=== PATIENT | female | born 1980 | race Caucasian/White ===

== ENCOUNTER → 2020-03-10 15:56 | Outpatient (CLI) | payer OTHER, SELFPAY ==
--- NOTE | ~2020-03-10 | MM_ITS ---
EXAMINATION: MM scrn kobi implant BI w luis HISTORY: Screening mammogram TECHNIQUE: Craniocaudal and mediolateral oblique 3-D tomosynthesis images with implant displacement a nd synthetic 2-D images were generated. Craniocaudal and mediolateral oblique views of the breasts wi thout implant displacement were obtained using full field digital mammography. CAD analysis was submi tted and interpreted. COMPARISON: 05/30/2011 BREAST PARENCHYMAL COMPOSITION: The breasts are extremely dense, which lowers the sensitivity of mamm ography. FINDINGS: There are subpectoral silicone implants. There is no evidence of suspicious mass, calcifica tion, or architectural distortion to suggest malignancy in either breast. There has been no suspiciou s interval change. IMPRESSION: 1. No mammographic evidence of malignancy. 2. Recommend routine screening mammography in one year. BI-RADS Category 1: Negative Reviewed, dictated and finalized at location A.
== END ==
PROVIDERS: Visit Provider Nurse Practitioner Obstetrics & Gynecology
DX: Z12.31 Encounter for screening mammogram for malignant neoplasm of breast (principal)
CPT/HCPCS: 77063; 77067

== ENCOUNTER 2025-06-10 08:56 | Outpatient (CLI) | payer OTHER, SELFPAY ==
--- NOTE | ~2025-06-10 | MR_ITS ---
EXAMINATION: MR lumbar spine wo con DATE: 06/10/2025 09:22 INDICATION: Acute low back pain and neuropathy with bilateral lower limb pain TECHNIQUE: Magnetic resonance imaging (MRI) of the lumbar spine was performed without intravenous contrast. Sequences included sagittal T2-weighted FSE, sagittal T2-weighted FS FSE, sagittal T1-weighted FSE, and axial T2-weighted FSE. COMPARISON: None FINDINGS: 3 mm retrolisthesis L5 on S1. Alignment is otherwise normal. Vertebral body heights are normal. T1 hyperintense hemangiomas at T11 and L1. Marrow signal is otherwise normal.. Mild disc height loss at T12-L1 and L5-S1, the latter with annular fissure. The conus medullaris terminates at L2. There is normal signal in the caudal spinal cord. Paravertebral soft tissues are unremarkable. The following disc levels are specifically discussed: T12-L1: Disc is mildly bulging. 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 There is no neural foraminal stenosis. There is minimal central canal stenosis. L1-L2: Disc is mildly bulging. 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 There is no neural foraminal stenosis. There is mild central canal stenosis. L2-L3: Disc is bulging. 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 There is mild bilateral neural foraminal stenosis. There is mild central canal stenosis. L3-L4: Disc is bulging. There is mild bilateral facet joint osteoarthritis. There is mild bilateral neural foraminal stenosis. There is mild central canal stenosis. L4-L5: Disc is bulging. There is mild to moderate bilateral facet joint osteoarthritis. There is mild to moderate bilateral neural foraminal stenosis. There is mild central canal stenosis. L5-S1: Annular fissure and small central disc extrusion with disc material extending up to 3 mm caudal to the level of the superior endplate of S1. There is mild to moderate bilateral facet joint osteoarthritis. There is mild to moderate bilateral neural foraminal stenosis. There is mild central canal stenosis. IMPRESSION: 1. Mild lumbar spondylosis. Reviewed, dictated and finalized at location A. YER IMPRESSION: 1. Mild lumbar spondylosis.
== END 2025-06-10 08:57 | disposition home or self-care (01) ==
LOC: MICIMG 08:56
DX: G62.9 Polyneuropathy, unspecified (principal); M47.896 Other spondylosis, lumbar region
CPT/HCPCS: 72148